=== PATIENT | male | born 1955 | race Caucasian/White ===

== ENCOUNTER 2020-03-21 13:06 | Outpatient (CLI) | payer OTHER, SELFPAY ==
--- NOTE | 2020-03-21 13:17 | US_ITS ---
WS: [id number] INDICATION: Left inguinal bulge. TECHNIQUE: Ultrasound left groin FINDINGS: Ultrasound left groin. Attention to the left internal canal. Motion is visualized in the le ft inguinal canal with Valsalva suspicious for inguinal hernia. No definite herniated dilated bowel. This can be further evaluated with CT. US/US soft tissue/extremity [id number] IMPRESSION: Motion the left inguinal canal with Valsalva suspicious for inguina l hernia. No visualized entrapped or dilated bowel
== END 2020-03-21 13:07 | disposition home or self-care (01) ==
LOC: RAD 13:14
PROVIDERS: PCP Nurse Practitioner Family; Visit Provider Nurse Practitioner Family
DX: R19.09 Other intra-abdominal and pelvic swelling, mass and lump (principal)
CPT/HCPCS: 76882